=== PATIENT | female | born 1990 | race Caucasian/White ===

== ENCOUNTER → 2025-01-17 | Outpatient (CLI) | payer OTHER ==
[~2025-01-17] MED LIST: ISOVUE-370 76% 100ML VIAL As Ordered ONE
== END ==
LOC: M RAD 13:53
PROVIDERS: ATTEND Otolaryngology
DX: R22.1 Localized swelling, mass and lump, neck (principal)
CPT/HCPCS: 70491; Q9967

== ENCOUNTER → 2025-05-07 | Outpatient (CLI) | payer OTHER ==
[~2025-05-07] MED LIST changes: -ISOVUE-370 76% 100ML VIAL As Ordered ONE; +PROHANCE 279.3MG/ML 15ML VIAL ONE
== END ==
LOC: M PLAIMG 08:15
PROVIDERS: ATTEND Physician Assistant
DX: R22.31 Localized swelling, mass and lump, right upper limb (principal); M85.441 Solitary bone cyst, right hand
CPT/HCPCS: 73220; A9576

== ENCOUNTER → 2025-07-03 | Outpatient (CLI) | payer OTHER ==
[~2025-07-03] MED LIST changes: +BARIUM SULFATE 700 MG TABLET As Ordered ONE; +E-Z-PAQUE 96% w/w SUSP 176 GM BTL As Ordered ONE; -PROHANCE 279.3MG/ML 15ML VIAL ONE; +VARIBAR NECTAR 40% w/v 240ML SUSP BTL As Ordered ONE; +VARIBAR PUDDING 40% w/v 230ML TUBE As Ordered ONE
== END ==
LOC: M RAD 12:50
PROVIDERS: ATTEND Otolaryngology
DX: R13.19 Other dysphagia (principal)

== ENCOUNTER → 2025-08-13 | Outpatient (CLI) | payer OTHER ==
[2025-08-13 10:59] LABS: FREE T4 1.16 NG/DL (0.89-1.76); TOTAL T3 141.2 NG/DL (60.0-181.0)
[2025-08-13 11:00] LABS: THYROGLOBULIN ANTIBODY 29.0 U/ML (<60.0); THYROID PEROXIDASE ANTIBODY < 28.0 U/ML (<60.0)
== END ==
LOC: M LAB 09:37
PROVIDERS: ATTEND Otolaryngology
DX: E06.9 Thyroiditis, unspecified (principal)

== ENCOUNTER → 2025-09-26 | Outpatient (CLI) | payer OTHER ==
[~2025-09-26] MED LIST changes: +AMPH1CAP4; +AMPH1CAP9; -BARIUM SULFATE 700 MG TABLET As Ordered ONE; -E-Z-PAQUE 96% w/w SUSP 176 GM BTL As Ordered ONE; +ISOVUE-300 61% 100 ML VIAL As Ordered ONE; +LEXA1TAB; +LIDOCAINE 1% MDV 20 ML VIAL As Ordered ONE; +NORG1TAB40; -VARIBAR NECTAR 40% w/v 240ML SUSP BTL As Ordered ONE; -VARIBAR PUDDING 40% w/v 230ML TUBE As Ordered ONE; +methylPREDNISolone 80 MG/ML SUSP 1 ML VIAL As Ordered ONE
== END ==
LOC: M RAD 13:31
PROVIDERS: ATTEND Student in an Organized Health Care Education/Training Program
DX: M25.552 Pain in left hip (principal)
CPT/HCPCS: 20610; 77002; J1010; Q9967

== ENCOUNTER 2025-10-01 06:07 | Day surgery (SDC) | payer OTHER ==
[~2025-10-01] VITALS: Ht 167.6 cm; Wt 77.4 kg
[~2025-10-01 06:07] MED LIST changes: -ISOVUE-300 61% 100 ML VIAL As Ordered ONE; -LIDOCAINE 1% MDV 20 ML VIAL As Ordered ONE; -methylPREDNISolone 80 MG/ML SUSP 1 ML VIAL As Ordered ONE
[2025-10-01] MEDS ORDERED: LR 1,000 ML IV SCH (06:10)
[2025-10-01] MEDS ORDERED: LIDOCAINE 2% 100 MG/5 ML SDV (FOR ANES.) As Ordered ONE (07:00)
[2025-10-01] MEDS ORDERED: ROCURONIUM BROMIDE 50MG/5ML VIAL As Ordered ONE (07:00)
[2025-10-01] MEDS ORDERED: MIDAZOLAM INJ 2 MG/2 ML VIAL As Ordered ONE (07:02)
[2025-10-01] MEDS: OXYMETAZOLINE 0.05% NASAL SPRAY As Ordered ONE (07:10)
[2025-10-01] MEDS ORDERED: ONDANSETRON 4MG/2ML VIAL As Ordered ONE (07:44)
[2025-10-01] MEDS ORDERED: SUGAMMADEX SODIUM 500 MG/5 ML VIAL As Ordered ONE (07:44)
[2025-10-01] MEDS ORDERED: dexAMETHasone 4 MG/ML 1 ML VIAL As Ordered ONE (07:45)
[2025-10-01] MEDS ORDERED: ACETAMINOPHEN 1000MG/100ML IV BAG As Ordered ONE (07:45)
[2025-10-01] MEDS: ONDANSETRON 4MG/2ML VIAL IV PRN (08:52)
[2025-10-01] MEDS ORDERED: diphenhydrAMINE 50 MG/ML VIAL As Ordered ONE (09:19)
[2025-10-01] MEDS: diphenhydrAMINE 50 MG/ML VIAL IV PRN (09:28)
[2025-10-01] MEDS: HYDROMORPHONE HCL 0.5 MG/0.5 ML SYRINGE IV PRN (10:12)
[2025-10-01] MEDS: diphenhydrAMINE 50 MG/ML VIAL IV STA (12:06)
[2025-10-01 12:45] VITALS: TEMP 96.3
[2025-10-01 13:15] VITALS: BP 130/81; O2SAT 100
== END 2025-10-01 13:30 | disposition home or self-care (01) ==
LOC: M SDC 06:07
PROVIDERS: ATTEND Otolaryngology
DX: J35.01 Chronic tonsillitis (principal); E78.00 Pure hypercholesterolemia, unspecified; J45.909 Unspecified asthma, uncomplicated; Z79.899 Other long term (current) drug therapy; Z88.5 Allergy status to narcotic agent; Z88.8 Allergy status to other drugs, medicaments and biological substances
CPT/HCPCS: 42826; 81025; 88302; J0131; J0665; J1100; J1171; J1200; J2250; J2405; J3010

== ENCOUNTER 2025-10-09 03:59 | Emergency (ER) | payer OTHER ==
[~2025-10-09] VITALS: Ht 167.6 cm; Wt 77.2 kg
[~2025-10-09 03:59] MED LIST changes: -AMPH1CAP4; +AMPH1CAP4 PO; -LEXA1TAB; +LEXA1TAB PO; -NORG1TAB40; +NORG1TAB40 PO
[2025-10-09 04:56] LABS: BASO # 0.1 10^3/uL (0.0-0.2); BASO % 0.6 % (0.0-1.0); EOS # 0.4 10^3/uL (0.0-0.5); EOS % 3.6 % (0.0-3.0); LYMPH # 3.0 10^3/uL (1.5-5.0); LYMPH % 26.0 % (24.0-44.0); MONO # 1.0 10^3/uL (0.0-0.8); MONO % 8.9 % (2.0-8.0); NEUTROPHILS # 7.0 10^3/uL (1.5-8.5); NEUTROPHILS % 60.4 % (36.0-66.0); PLATELET COUNT, AUTOMATED 305 10^3/uL (150-450)
[2025-10-09 05:14] LABS: ALT/SGPT 30 U/L (7.0-40); AST/SGOT 15 U/L (<34); CALCIUM LEVEL 8.4 MG/DL (8.5-10.1); CARBON DIOXIDE LEVEL 27 MMOL/L (20-31); CHLORIDE LEVEL 107 MMOL/L (98-107); CREATININE FOR GFR 0.70 MG/DL (0.55-1.30); GLOMERULAR FILTRATION RATE > 90.0 (>60); POTASSIUM SERUM 3.7 MMOL/L (3.5-5.1); SODIUM LEVEL 141 MMOL/L (136-145)
[2025-10-09 05:18] LABS: INR 1.0
[2025-10-09] MEDS: TRANEXAMIC ACID 100 MG/ML 10ML VIAL NEB ONE (06:54)
[2025-10-09] MEDS: ACETAMINOPHEN 500 MG TAB PO ONE (07:24)
[2025-10-09] MEDS ORDERED: HYDR-3713 PO (07:42)
[2025-10-09 07:44] VITALS: BP 125/83; TEMP 97.6; O2SAT 98
== END 2025-10-09 07:53 | disposition home or self-care (01) ==
LOC: M ED 03:59
DX: J95.830 Postprocedural hemorrhage of a respiratory system organ or structure following a respiratory system procedure (principal); J45.909 Unspecified asthma, uncomplicated; Z88.5 Allergy status to narcotic agent; Z88.8 Allergy status to other drugs, medicaments and biological substances; Z79.1 Long term (current) use of non-steroidal anti-inflammatories (NSAID); Z79.899 Other long term (current) drug therapy

== ENCOUNTER 2025-10-13 02:11 | Observation (INO) | payer OTHER ==
[2025-10-13] VITALS (8 sets, daily range): BP systolic 110–128; BP diastolic 59–73; TEMP 97.8–98.5; O2SAT 96–99
[~2025-10-13] VITALS: Ht 170.2 cm; Wt 77.3 kg
[~2025-10-13 02:11] MED LIST changes: +HYDR-3713 PO
[2025-10-13 02:57] LABS: BASO # 0.1 10^3/uL (0.0-0.2); BASO % 0.4 % (0.0-1.0); EOS # 0.4 10^3/uL (0.0-0.5); EOS % 3.6 % (0.0-3.0); LYMPH # 4.0 10^3/uL (1.5-5.0); LYMPH % 33.0 % (24.0-44.0); MONO # 1.0 10^3/uL (0.0-0.8); MONO % 8.5 % (2.0-8.0); NEUTROPHILS # 6.5 10^3/uL (1.5-8.5); NEUTROPHILS % 53.8 % (36.0-66.0); PLATELET COUNT, AUTOMATED 393 10^3/uL (150-450)
[2025-10-13] MEDS: ONDANSETRON 4MG/2ML VIAL IV ONE (03:14)
[2025-10-13] MEDS: NS (Normal Saline) 0.9% 1,000 ML IV ONE (03:14)
[2025-10-13 03:17] LABS: MAGNESIUM LEVEL 2.0 MG/DL (1.8-2.4)
[2025-10-13 03:24] LABS: INR 0.99
[2025-10-13] MEDS: OXYMETAZOLINE 0.05% NASAL SPRAY As Ordered ONE (03:26)
[2025-10-13] MEDS ORDERED: LIDOCAINE 2% 100 MG/5 ML SDV (FOR ANES.) As Ordered ONE (03:36)
[2025-10-13] MEDS ORDERED: MIDAZOLAM INJ 2 MG/2 ML VIAL As Ordered ONE (03:36)
[2025-10-13] MEDS ORDERED: SUCCINYLCHOLINE 100MG/5ML SYRINGE As Ordered ONE (03:36)
[2025-10-13] MEDS: LIDOCAINE W/EPINEPHrine 1% 20 ML VIAL As Ordered ONE (03:38)
[2025-10-13 03:58] LABS: CALCIUM LEVEL 9.1 MG/DL (8.5-10.1); CARBON DIOXIDE LEVEL 26 MMOL/L (20-31); CHLORIDE LEVEL 107 MMOL/L (98-107); CREATININE FOR GFR 0.74 MG/DL (0.55-1.30); GLOMERULAR FILTRATION RATE > 90.0 (>60); POTASSIUM SERUM 5.3 MMOL/L (3.5-5.1); SODIUM LEVEL 142 MMOL/L (136-145)
[2025-10-13] MEDS ORDERED: ONDANSETRON 4MG/2ML VIAL As Ordered ONE (04:04)
[2025-10-13] MEDS ORDERED: dexAMETHasone 4 MG/ML 1 ML VIAL As Ordered ONE (04:04)
[2025-10-13] MEDS ORDERED: MORPHINE 2 MG/ML 1 ML VIAL IV PRN ×2 (04:15→08:00)
[2025-10-13] MEDS: METHYLENE BLUE 0.5% (5 MG/ML) 10 ML AMP As Ordered ONE (04:16)
[2025-10-13] MEDS: EPINEPHrine 1 MG/ML INJ 30 ML MD-VIAL As Ordered ONE (04:16)
[2025-10-13] MEDS ORDERED: dexmedeTOMIDine (4 MCG/ML) 200 MCG/50 ML BTL As Ordered ONE (04:17)
[2025-10-13] MEDS ORDERED: ACETAMINOPHEN 1000MG/100ML IV BAG As Ordered ONE (04:17)
[2025-10-13] MEDS: HYDROMORPHONE HCL 0.5 MG/0.5 ML SYRINGE IV PRN (05:13)
[2025-10-13] MEDS ORDERED: HYDROmorphone 2 MG TAB PO PRN (05:30)
[2025-10-13] MEDS: cefTRIAXone SOD 1 GM in DEXTROSE 5% (D5W) ADV/MINI-BAG 50 ML IV ONE (06:33)
[2025-10-13] MEDS: diphenhydrAMINE 50 MG/ML VIAL IV ONE (06:45)
[2025-10-13] MEDS: NS (Normal Saline) 0.9% 1,000 ML IV SCH (06:56)
[2025-10-13] MEDS: HYDROCORTISONE 100 MG/2 ML VIAL IV ONE (07:51)
[2025-10-13 08:31] LABS: BASO # 0.0 10^3/uL (0.0-0.2); BASO % 0.2 % (0.0-1.0); EOS # 0.0 10^3/uL (0.0-0.5); EOS % 0.2 % (0.0-3.0); LYMPH # 1.3 10^3/uL (1.5-5.0); LYMPH % 8.9 % (24.0-44.0); MONO # 0.2 10^3/uL (0.0-0.8); MONO % 1.2 % (2.0-8.0); NEUTROPHILS # 12.9 10^3/uL (1.5-8.5); NEUTROPHILS % 88.8 % (36.0-66.0); PLATELET COUNT, AUTOMATED 327 10^3/uL (150-450)
[2025-10-13] MEDS: PANTOPRAZOLE 40MG VIAL IV SCH (08:46)
[2025-10-13] MEDS: KETOROLAC 30 MG/ML 1 ML VIAL IV PRN (08:46)
[2025-10-13] MEDS ORDERED: OXYC1SOL3 PO (08:52)
[2025-10-13] MEDS ORDERED: HYDR-3713 PO (08:52)
[2025-10-13] MEDS ORDERED: ADDE1TAB14 PO (08:52)
[2025-10-13 08:53] LABS: ALT/SGPT 27 U/L (7.0-40); AST/SGOT 15 U/L (<34); CALCIUM LEVEL 8.5 MG/DL (8.5-10.1); CARBON DIOXIDE LEVEL 24 MMOL/L (20-31); CHLORIDE LEVEL 109 MMOL/L (98-107); CREATININE FOR GFR 0.66 MG/DL (0.55-1.30); GLOMERULAR FILTRATION RATE > 90.0 (>60); POTASSIUM SERUM 4.3 MMOL/L (3.5-5.1); SODIUM LEVEL 141 MMOL/L (136-145)
[2025-10-13] MEDS ORDERED: HOME MED LIST COMPLETE! XX SCH (08:55)
[2025-10-13] MEDS ORDERED: ONDANSETRON 4MG/2ML VIAL IV PRN (09:00)
[2025-10-13] MEDS: ACETAMINOPHEN 325 MG TAB PO PRN (12:05)
[2025-10-13] MEDS: ACETAMINOPHEN 500 MG TAB PO SCH (16:32)
[2025-10-13] MEDS: KETOROLAC 30 MG/ML 1 ML VIAL IV ONE (23:30)
[2025-10-14] VITALS: BP 119/69; TEMP 98.7; O2SAT 98
[2025-10-14] MEDS: MAGIC MOUTHWASH 5 ML ORAL SYRINGE SSP PRN (00:50)
[2025-10-14] MEDS: diphenhydrAMINE 50 MG/ML VIAL IV ONE (01:49)
[2025-10-14] MEDS: PERCOCET 5MG/325MG TAB PO ONE (01:57)
[2025-10-14 04:00] VITALS: BP 111/67; TEMP 98.2; O2SAT 100
[2025-10-14 07:21] VITALS: BP 116/65; TEMP 98.2; O2SAT 99
[2025-10-14 08:39] LABS: PLATELET COUNT, AUTOMATED 262 10^3/uL (150-450)
[2025-10-14 09:10] LABS: CALCIUM LEVEL 8.8 MG/DL (8.5-10.1); CARBON DIOXIDE LEVEL 26 MMOL/L (20-31); CHLORIDE LEVEL 107 MMOL/L (98-107); CREATININE FOR GFR 0.68 MG/DL (0.55-1.30); GLOMERULAR FILTRATION RATE > 90.0 (>60); POTASSIUM SERUM 3.6 MMOL/L (3.5-5.1); SODIUM LEVEL 142 MMOL/L (136-145)
== END 2025-10-14 12:47 | disposition home or self-care (01) ==
LOC: M ED 02:11 → M ED INP 03:32 → INTOOBSV 03:32 → M PCU 05:48
PROVIDERS: ADMIT Otolaryngology; ATTEND Otolaryngology
DX: J95.830 Postprocedural hemorrhage of a respiratory system organ or structure following a respiratory system procedure (principal); R11.0 Nausea; H92.01 Otalgia, right ear; R68.84 Jaw pain; J45.909 Unspecified asthma, uncomplicated; F41.9 Anxiety disorder, unspecified; Z88.8 Allergy status to other drugs, medicaments and biological substances; Z88.5 Allergy status to narcotic agent; Z91.048 Other nonmedicinal substance allergy status; Z79.899 Other long term (current) drug therapy
CPT/HCPCS: 36415; 42962; 80048; 80053; 83735; 85025; 85027; 85610; 85730; 86850; 86900; 86901; 96361; 96374; 96375; 96376; 99284; J0131; J0165; J0330; J0696; J1100; J1171; J1200; J1720; J1885; J2250; J2405; J2470; J3010; J3490